=== PATIENT | female | born 2000 | race African-American/Black ===

== ENCOUNTER 2022-08-05 14:44 | Emergency (ER) | payer OTHER ==
[~2022-08-05] VITALS: Ht 162.6 cm; Wt 60.2 kg
[2022-08-05 14:46] VITALS: BP 121/70
[2022-08-05 16:18] LABS: URINE PREG TEST NEGATIVE (NEGATIVE)
[2022-08-05] MEDS ORDERED: BACTRIM 160MG/800MG DS TAB PO ONE (16:25)
[2022-08-05] MEDS ORDERED: SULF1TAB23 PO (16:25)
[2022-08-07] MEDS ORDERED: NITR1CAP11 PO (10:03)
== END 2022-08-05 16:34 | disposition home or self-care (01) ==
LOC: M ED 14:44
DX: N39.0 Urinary tract infection, site not specified (principal)

== ENCOUNTER 2022-09-10 15:30 | Emergency (ER) | payer OTHER ==
[~2022-09-10] VITALS: Ht 162.6 cm; Wt 58.3 kg
[~2022-09-10 15:30] MED LIST: NITR1CAP11 PO; SULF1TAB23 PO
[2022-09-10 17:13] LABS: LIPASE 32 U/L (12-53)
[2022-09-10 17:16] LABS: ALBUMIN 4.1 G/DL (3.2-5.2); ALKALINE PHOSPHATASE 71 U/L (46-116); ALT/SGPT 17 U/L (7.0-40); AST/SGOT 21 U/L (<34); BILIRUBIN,DIRECT 0.3 MG/DL (<0.4); BILIRUBIN,TOTAL 0.8 MG/DL (0.3-1.2); BLOOD UREA NITROGEN 10 MG/DL (9-23); CALCIUM LEVEL 9.3 MG/DL (8.5-10.1); CARBON DIOXIDE LEVEL 26 MMOL/L (20-31); CHLORIDE LEVEL 104 MMOL/L (98-107); CREATININE FOR GFR 0.73 MG/DL (0.55-1.30); GLOMERULAR FILTRATION RATE > 60.0 (>60); GLUCOSE, FASTING 81 MG/DL (60-100); POTASSIUM SERUM 4.7 MMOL/L (3.5-5.1); SODIUM LEVEL 139 MMOL/L (136-145); TOTAL PROTEIN 6.8 G/DL (5.7-8.2)
[2022-09-10 17:17] LABS: BASO % 0.9 % (0.0-1.0); EOS # 0.1 10^3/uL (0.0-0.5); EOS % 2.4 % (0.0-3.0); HEMATOCRIT 40.2 % (36.0-47.0); LYMPH # 2.1 10^3/uL (1.5-5.0); LYMPH % 45.8 % (24.0-44.0); MEAN CORPUSCULAR HEMOGLOBIN 26.1 pg (27.0-33.0); MEAN CORPUSCULAR HGB CONC 32.3 g/dl (32.0-36.5); MEAN CORPUSCULAR VOLUME 80.7 fl (80.0-96.0); MONO # 0.5 10^3/uL (0.0-0.8); MONO % 11.3 % (2.0-8.0); NEUTROPHILS # 1.8 10^3/uL (1.5-8.5); NEUTROPHILS % 39.6 % (36.0-66.0); PLATELET COUNT, AUTOMATED 327 10^3/uL (150-450); RED BLOOD COUNT 4.98 10^6/uL (4.00-5.40); WHITE BLOOD COUNT 4.5 10^3/uL (4.0-10.0)
[2022-09-10 17:54] LABS: HCG, SERUM QUALITATIVE NEGATIVE (NEGATIVE)
[2022-09-10] MEDS ORDERED: KETOROLAC 30 MG/ML 1ML VIAL IV ONE (19:30)
[2022-09-10 21:11] LABS: GC DNA AMPLIFICATION NEGATIVE (NEGATIVE)
[2022-09-10] MEDS ORDERED: MORPHINE 2 MG/ML 1ML VIAL IV ONE (21:35)
[2022-09-10] MEDS ORDERED: KETO10TAB PO (22:19)
[2022-09-10] MEDS ORDERED: PROM25TA12 PO (22:19)
[2022-09-10 22:37] VITALS: BP 114/73
== END 2022-09-10 22:39 | disposition home or self-care (01) ==
LOC: M ED 15:30
DX: R10.2 Pelvic and perineal pain (principal); R11.0 Nausea; R51.9 Headache, unspecified; N88.8 Other specified noninflammatory disorders of cervix uteri; Z79.899 Other long term (current) drug therapy
CPT/HCPCS: 76830; 76856; 80048; 80076; 81001; 83690; 84703; 85025; 87086; 87661; 87810; 87850; 93976; 96374; 96375; 99284; J1885; J2270

== ENCOUNTER 2023-01-10 14:42 | Emergency (ER) | payer OTHER ==
[~2023-01-10] VITALS: Ht 162.6 cm; Wt 61.4 kg
[~2023-01-10 14:42] MED LIST changes: +KETO10TAB PO; +PROM25TA12 PO
[2023-01-10 15:26] LABS: BASO # 0.1 10^3/uL (0.0-0.2); EOS # 0.2 10^3/uL (0.0-0.5); EOS % 3.8 % (0.0-3.0); HEMATOCRIT 36.3 % (36.0-47.0); HEMOGLOBIN 11.8 g/dl (12.0-15.5); LYMPH # 1.6 10^3/uL (1.5-5.0); LYMPH % 31.7 % (24.0-44.0); MEAN CORPUSCULAR HEMOGLOBIN 25.6 pg (27.0-33.0); MEAN CORPUSCULAR HGB CONC 32.5 g/dl (32.0-36.5); MEAN CORPUSCULAR VOLUME 78.7 fl (80.0-96.0); MONO # 0.5 10^3/uL (0.0-0.8); MONO % 10.7 % (2.0-8.0); NEUTROPHILS # 2.6 10^3/uL (1.5-8.5); NEUTROPHILS % 52.4 % (36.0-66.0); PLATELET COUNT, AUTOMATED 299 10^3/uL (150-450); RED BLOOD COUNT 4.61 10^6/uL (4.00-5.40)
[2023-01-10 15:58] LABS: ALBUMIN 3.7 G/DL (3.2-5.2); BILIRUBIN,DIRECT 0.2 MG/DL (<0.4); BILIRUBIN,TOTAL 0.6 MG/DL (0.3-1.2); TOTAL PROTEIN 6.2 G/DL (5.7-8.2)
[2023-01-10] MEDS ORDERED: ONDANSETRON 4MG 2ML VIAL IV ONE (19:20)
[2023-01-10] MEDS ORDERED: MORPHINE 2 MG/ML 1ML VIAL IV ONE (19:20)
[2023-01-10] MEDS ORDERED: TRAM50TA2 PO (21:27)
[2023-01-10] MEDS ORDERED: IBUP-1022 PO (21:28)
[2023-01-10] MEDS ORDERED: traMADol 50 MG TAB (HOME DOSE PACK) PO ONE (21:30)
[2023-01-10 21:54] VITALS: BP 111/67; TEMP 98.8; O2SAT 100
== END 2023-01-10 21:50 | disposition home or self-care (01) ==
LOC: M ED 14:42
DX: N83.202 Unspecified ovarian cyst, left side (principal)
CPT/HCPCS: 76830; 76856; 80047; 80076; 83690; 84702; 85025; 93976; 96374; 96375; 99284; J2405

== ENCOUNTER 2023-01-26 21:45 | Emergency (ER) | payer OTHER ==
[~2023-01-26] VITALS: Ht 162.6 cm; Wt 63.4 kg
[~2023-01-26 21:45] MED LIST changes: +IBUP-1022 PO; +TRAM50TA2 PO
[2023-01-26 22:20] LABS: APPEARANCE, URINE CLEAR (CLEAR); BACTERIA, URINE AUTO 1+ (NEGATIVE); BILIRUBIN, URINE AUTO NEGATIVE (NEGATIVE); BLOOD, URINE BLOOD NEGATIVE (NEGATIVE); COLOR, URINE STRAW (YELLOW); GLUCOSE, URINE (UA) AUTO NEGATIVE (NEGATIVE); KETONE, URINE AUTO NEGATIVE (NEGATIVE); LEUKOCYTE ESTERASE, URINE AUTO NEGATIVE (NEGATIVE); MUCUS, URINE SMALL (NEGATIVE); NITRITE, URINE AUTO NEGATIVE (NEGATIVE); PROTEIN, URINE AUTO NEGATIVE (NEGATIVE); RBC, URINE AUTO 1 /HPF (0-3); SPECIFIC GRAVITY URINE AUTO 1.009 (1.002-1.035); SQUAMOUS EPITHELIAL CELL UR AU 0 /HPF (0-6); UROBILINOGEN, URINE AUTO 0.2 mg/dL (0.0-2.0); WBC, URINE AUTO 1 /HPF (0-3)
[2023-01-26 22:23] LABS: HEMATOCRIT 35.8 % (36.0-47.0); HEMOGLOBIN 11.8 g/dl (12.0-15.5); MEAN CORPUSCULAR HEMOGLOBIN 25.7 pg (27.0-33.0); MEAN CORPUSCULAR VOLUME 77.8 fl (80.0-96.0); PLATELET COUNT, AUTOMATED 331 10^3/uL (150-450)
[2023-01-26 22:43] LABS: BLOOD UREA NITROGEN 10 MG/DL (9-23); CALCIUM LEVEL 8.9 MG/DL (8.5-10.1); CARBON DIOXIDE LEVEL 24 MMOL/L (20-31); CHLORIDE LEVEL 108 MMOL/L (98-107); CREATININE FOR GFR 0.74 MG/DL (0.55-1.30); GLOMERULAR FILTRATION RATE > 60.0 (>60); GLUCOSE, FASTING 81 MG/DL (60-100); POTASSIUM SERUM 4.2 MMOL/L (3.5-5.1); SODIUM LEVEL 140 MMOL/L (136-145)
[2023-01-27 01:25] VITALS: BP 123/89; TEMP 98.3; O2SAT 100
[2023-01-27] MEDS ORDERED: ACETAMINOPHEN 325 MG TAB PO ONE (01:35)
[2023-01-30] MEDS ORDERED: AMIT25TA17 PO (07:37)
== END 2023-01-27 03:30 | disposition left against medical advice (07) ==
LOC: M ED 21:45
DX: R10.2 Pelvic and perineal pain (principal); Z53.21 Procedure and treatment not carried out due to patient leaving prior to being seen by health care provider